=== PATIENT | female | born 1950 | race American Indian/Alaskan Native ===

== ENCOUNTER 2017-04-09 15:27 | Outpatient (CLI) | payer MEDICARE ==
--- NOTE | 2017-04-09 16:14 | Mammography Report ---
BILATERAL DIGITAL DIAGNOSTIC MAMMOGRAM with CAD: 04/09/17 15:27:00 CLINICAL: Right nipple discharge. COMPARISON:09/28/10 FINDINGS: The breasts are mostly fatty.No mass, architectural distortion or suspicious calcifications. I discussed the right nipple discharge with the patient and she showed me a small carbuncle on the side of the nipple and she expressed purulent material from the carbuncle. She said it had been present for about four months and she describes no other discharge. IMPRESSION: Negative mammogram.A benign carbuncle of the right nipple. BI-RADS CATEGORY: 2 - - Benign RECOMMENDATION: Treatment of the right nipple with an [id number]-[id number] antibacterial ointment. Recommend consultation with a breast surgeon if the condition worsens or does not resolve.. ACR BI-RADS MAMMOGRAPHIC CODES: 0 = Needs additional imaging evaluation; 1 = Negative; 2 = Benign; 3 = Probably benign; 4 = Suspicious; 5 = Malignant; 6 = Known biopsy-proven malignancy COMMENT: 1. Dense breast tissue, i.e., adenosis, fibrocystic changes, etc., may obscure an underlying neoplasm. 2. Approximately 10% of cancers are not detected with mammography. 3. A negative mammography report should not delay biopsy if a clinically suspicious mass is present. COMMENT: Patient follow-up letters are generated by our [employer] application.
== END 2017-04-09 15:28 | disposition home or self-care (01) ==
LOC: SPVWC 15:27
DX: N61.1 Abscess of the breast and nipple (principal)
CPT/HCPCS: 77066; G0204

== ENCOUNTER 2017-11-26 14:23 | Outpatient (CLI) | payer MEDICARE ==
--- NOTE | 2017-11-26 15:18 | XRay Report ---
XRAY CHEST TWO VIEWS: 11/26/17 14:23:00 CLINICAL: Cough. COMPARISON: 05/15/11 FINDINGS: Normal heart and pulmonary vasculature. The lungs are mildly hyperexpanded and hyperlucent. No airspace disease or pleural effusion.The bones and soft tissues are normal. IMPRESSION: Mild COPD.No CHF or pneumonia.
== END 2017-11-26 14:24 | disposition home or self-care (01) ==
LOC: SPVIMAG 14:23
DX: J44.9 Chronic obstructive pulmonary disease, unspecified (principal)
CPT/HCPCS: 71046